=== PATIENT | female | born 1995 ===

== ENCOUNTER 2024-11-27 06:40 | Day surgery (SDC) | payer OTHER ==
[2024-11-13 08:15] LABS: HEMATOCRIT 36.9 % (36.0-45.00); HEMOGLOBIN 12.2 g/dL (12.0-15.00); MEAN CELL VOLUME 78.1 fL (80.00-100.00); MEAN CORPUSCULAR HEMOGLOBIN 25.9 pg (27.00-32.0); MEAN CORPUSCULAR HGB CONC 33.2 g/dl (32.0-36.0); PLATELET COUNT 285 K/uL (150-450); RED BLOOD COUNT 4.72 M/uL (4.00-6.00); RED CELL DISTRIBUTION WIDTH 14.2 % (11.5-14.5)
[2024-11-13 08:19] LABS: URINE APPEARANCE Clear; URINE BILIRRUBIN Negative (NEGATIVE); URINE BLOOD Negative; URINE COLOR Yellow; URINE GLUCOSE Negative (NEGATIVE); URINE KETONE Negative (NEGATIVE); URINE LEUKOCYTE Negative; URINE NITRATE Negative; URINE PROTEIN Negative (NEGATIVE); URINE UROBILINOGEN 0.2 E.U./dl
[2024-11-13 08:23] LABS: URINE BACTERIA 1392.8 uL (0.0-1933); URINE EPITHELIAL CELLS 45.2 uL (0.0-38.8); URINE WBC 42.7 uL (0.0-23.2)
[2024-11-13 08:46] LABS: INR 1.06; PARTIAL THROMBOPLASTIN TIME 31.4 SECONDS (22.0-34.0); PROTHROMBIN TIME 11.5 SECONDS (9.0-11.5)
[2024-11-13 09:03] LABS: URINE CAST 0.44 uL (0.0-1.40)
[2024-11-13 09:22] LABS: ALBUMIN 4.1 gm/dL (3.4-5.0); BILIRUBIN TOTAL 1.06 mg/dL (0.3-1.2); CALCIUM 8.9 mg/dL (8.5-10.1); CREATININE SERUM 0.62 mg/dL (0.55-1.02); GFR 113.02; GLOBULINA 3.5 G/DL (2.4-3.5); POTASSIUM 3.9 mEq/L (3.5-5.1); TOTAL PROTEIN 7.6 gm/dL (6.4-8.2)
[2024-11-13 11:50] VITALS: BP 91/63
[~2024-11-27 06:40] MED LIST: CARAFATE1 GM/10 ML PO
[2024-11-27] MEDS ORDERED: CEFAZOLIN SODIUM 1,000 MG VIAL ONE (09:02)
[2024-11-27] MEDS ORDERED: BUPIVACAINE HCL/Mpf 0.5% 10ML VIAL ONE (10:09)
[2024-11-27] MEDS ORDERED: ISOPROPYL ALCOHOL 30 ML OUNCE TOP ONE (10:45)
[2024-11-27 15:36] VITALS: O2SAT 100
[2024-11-28 14:54] VITALS: BP 119/75
== END 2024-11-27 14:05 | disposition home or self-care (01) ==
LOC: CIR.AMB 06:40
PROVIDERS: ATTEND Orthopaedic Surgery Hand Surgery
DX: D21.12 Benign neoplasm of connective and other soft tissue of left upper limb, including shoulder (principal)